=== PATIENT | male | born 2000 | race Caucasian/White ===

== ENCOUNTER 2021-02-11 05:14 | Emergency (ER) | payer SELFPAY ==
[2021-02-11 05:40] LABS: HEMOGLOBIN 16.1 gm/dl (14.0-17.5); RED BLOOD COUNT 5.39 M/UL (4.20-5.50); WHITE BLOOD COUNT 12.9 K/UL (4.5-11.0)
[2021-02-11 06:00] LABS: BUN/CREATININE RATIO 13 (0-10)
[2021-02-11] MEDS ORDERED: HYDROCODON-ACE1 EAC4 PO (08:11)
[2021-02-11] MEDS ORDERED: OMNICEF 300 MG300 MG PO (08:11)
[2021-02-11] MEDS ORDERED: FLOMAX0.4 MG PO (08:11)
== END 2021-02-11 08:45 | disposition home or self-care (01) ==
LOC: ER1 05:14
PROVIDERS: Family Medicine
DX: N13.2 Hydronephrosis with renal and ureteral calculous obstruction (principal); Z90.49 Acquired absence of other specified parts of digestive tract
CPT/HCPCS: 80053; 81001; 83690; 85025; 96374; 96375; 99284; J1885; J2270; J2405